=== PATIENT | female | born 1985 | race American Indian/Alaskan Native ===

== ENCOUNTER 2017-10-12 13:48 | Emergency (ER) | payer OTHER ==
--- NOTE | 2017-10-12 15:14 | XRay Report ---
FINAL REPORT EXAM: XR CHEST ROUTINE 2V HISTORY: chest pain TECHNIQUE: Two view chest PA and lateral PRIORS: None. FINDINGS: Cardiac and mediastinal contours are unremarkable. No focal pulmonary infiltrate is identified. No pleural fluid collection seen. Pulmonary vasculature is unremarkable. IMPRESSION: Negative two-view chest
[2017-10-12 15:40] LABS: Hematocrit 32.5 % (30.3-42.9); Mean Corpuscular Hemoglobin 24 pg (28-32); Mean Corpuscular Volume 77 fl (79-97); Red Blood Count 4.22 M/mm3 (3.65-5.03); White Blood Count 8.4 K/mm3 (4.5-11.0)
[2017-10-12 15:41] LABS: Basophils % (Auto) 0.3 % (0.0-1.8); Eosinophils % (Auto) 0.2 % (0.0-4.3); Mean Corpuscular HGB Conc 31 % (30-34); Platelet Count 191 K/mm3 (140-440); Red Cell Distribution Width 20.4 % (13.2-15.2)
[2017-10-12 15:47] LABS: Anion Gap 21 mmol/L; BUN/Creatinine Ratio 12; Blood Urea Nitrogen 7 mg/dL (7-17); Carbon Dioxide 19 mmol/L (22-30); Chloride 99.3 mmol/L (98-107); Glucose 83 mg/dL (65-100); Potassium 4.3 mmol/L (3.6-5.0); Sodium 135 mmol/L (137-145)
[2017-10-12] MEDS ORDERED: ZITHROMAX PO ONE (20:14)
[2017-10-12] MEDS ORDERED: TORADOL IM ONE (20:14)
[2017-10-12] MEDS ORDERED: ULTRAM PO ONE (20:14)
[2017-10-12] MEDS ORDERED: TESSALON PERLES PO ONE (20:14)
[2017-10-12 20:18] VITALS: BP 140/74
--- NOTE | 2017-10-12 20:24 | Emergency Department Report ---
- General Chief Complaint: Chest Pain Stated Complaint: COUGH/SORE THROAT/CHEST PAIN/CHILLS Time Seen by Provider: 10/12/17 19:56 Source: patient Mode of arrival: Ambulatory Limitations: No Limitations - History of Present Illness Initial Comments: 32-year-old female smoker with no significant past medical history presents to the hospital complaining of cough and cold symptoms 4 days. Cough productive of green sputum. Chills without documented fever. Intermittent sternal sharp chest pain rated 8/10 in intensity, worse with cough, palpation, and movement. Patient denies shortness of breath, sick contacts, recent travel, and did not receive a flu shot this year. no calf or leg symptoms reported. Patient also complains of right-sided throat pain with gland swelling. Taking over-the- counter medication without relief - Related Data Previous Rx's Medication Instructions Recorded Last Taken Type Azithromycin [Zithromax Z-ABDOULAYE] 1 dose PO DAILY 5 Days tab 10/12/17 Unknown Rx Benzonatate [Tessalon Perles] 100 mg PO Q8HR PRN #30 capsule 10/12/17 Unknown Rx Ibuprofen [Motrin] 800 mg PO Q8HR PRN #30 tablet 10/12/17 Unknown Rx traMADol [Ultram 50 MG tab] 50 mg PO Q6HR PRN #20 tablet 10/12/17 Unknown Rx Allergies Allergy/AdvReac Type Severity Reaction Status Date / Time No Known Allergies Allergy Verified 10/12/17 14:11 ED Review of Systems ROS: Stated complaint: COUGH/SORE THROAT/CHEST PAIN/CHILLS Other details as noted in HPI Comment: All other systems reviewed and negative Other: Constitutional: As per HPI Eyes: No eye pain visual changes ENT: No ear pain or throat pain Neck: Denies pain Respiratory: As per HPI Cardiovascular: Denies palpitations, syncope GI: Denies abdominal pain, nausea, vomiting, diarrhea : Denies dysuria Musculoskeletal: Denies back pain Skin: Denies rash, lesions, erythema Neurologic: Denies headache, numbness, weakness Psychiatric: Denies suicidal ideation, hallucinations ED Past Medical Hx - Past Medical History Previous Medical History?: No - Surgical History Past Surgical History?: No - Social History Smoking Status: Current Every Day Smoker Substance Use Type: Alcohol - Medications Home Medications: Home Medications Medication Instructions Recorded Confirmed Last Taken Type Azithromycin [Zithromax Z-ABDOULAYE] 1 dose PO DAILY 5 Days tab 10/12/17 Unknown Rx Benzonatate [Tessalon Perles] 100 mg PO Q8HR PRN #30 capsule 10/12/17 Unknown Rx Ibuprofen [Motrin] 800 mg PO Q8HR PRN #30 tablet 10/12/17 Unknown Rx traMADol [Ultram 50 MG tab] 50 mg PO Q6HR PRN #20 tablet 10/12/17 Unknown Rx ED Physical Exam - General Limitations: No Limitations - Other Other exam information: General: No limitations, patient is alert in no acute distress Head exam: Atraumatic, normocephalic Eyes exam: Normal appearance, pupils equal reactive to light, extraocular movements intact ENT: Moist mucous membrane, tonsillar swelling bilaterally greater on the right. Tender cervical lymphadenopathy Neck exam: Normal inspection, full range of motion, no meningismus nontender Respiratory exam: Clear to auscultation bilateral, no wheezes, rales, crackles, reproducible midsternal chest wall tenderness Cardiovascular: Normal rate and rhythm, normal heart sounds Abdomen: Soft, nondistended, and nontender, with normal bowel sounds, no rebound, or guarding Extremity: Full range of motion normal inspection no deformity, no calf tenderness or edema Back: Normal Inspection, full range of motion, no tenderness Neurologic: Alert, oriented x3, cranial nerves intact, no motor or sensory deficit Psychiatric: normal affect, normal mood Skin: Warm, dry, intact ED Course Vital Signs 10/12/17 10/12/17 14:06 20:02 Temperature 99.6 F 98.8 F Pulse Rate 102 H 89 Respiratory 16 19 Rate Blood Pressure 153/91 Blood Pressure 132/62 [Left] O2 Sat by Pulse 97 98 Oximetry - Reevaluation(s) Reevaluation #1: 10/12/17 20:27 Patient given azithromycin by mouth, Toradol IM, Tessalon Perles by mouth, and tramadol by mouth ED Medical Decision Making - Lab Data Result diagrams: 10/12/17 14:49 10/12/17 14:49 Lab Results 10/12/17 10/12/17 10/12/17 Range/Units 14:49 14:49 17:12 WBC 8.4 (4.5-11.0) K/mm3 RBC 4.22 (3.65-5.03) M/mm3 Hgb 10.0 L (10.1-14.3) gm/dl Hct 32.5 (30.3-42.9) % MCV 77 L (79-97) fl MCH 24 L (28-32) pg MCHC 31 (30-34) % RDW 20.4 H (13.2-15.2) % Plt Count 191 (140-440) K/mm3 Lymph % (Auto) 12.0 L (13.4-35.0) % Wirt % (Auto) 5.7 (0.0-7.3) % Eos % (Auto) 0.2 (0.0-4.3) % Baso % (Auto) 0.3 (0.0-1.8) % Lymph # 1.0 L (1.2-5.4) K/mm3 Wirt # 0.5 (0.0-0.8) K/mm3 Eos # 0.0 (0.0-0.4) K/mm3 Baso # 0.0 (0.0-0.1) K/mm3 Seg Neutrophils % 81.8 H (40.0-70.0) % Seg Neutrophils # 6.8 (1.8-7.7) K/mm3 Sodium 135 L (137-145) mmol/L Potassium 4.3 (3.6-5.0) mmol/L Chloride 99.3 (98-107) mmol/L Carbon Dioxide 19 L (22-30) mmol/L Anion Gap 21 mmol/L BUN 7 (7-17) mg/dL Creatinine 0.6 L (0.7-1.2) mg/dL Estimated GFR > 60 ml/min BUN/Creatinine Ratio 12 % Glucose 83 (65-100) mg/dL Calcium 9.0 (8.4-10.2) mg/dL Troponin T < 0.010 < 0.010 (0.00-0.029) ng/mL 10/12/17 Range/Units 19:24 WBC (4.5-11.0) K/mm3 RBC (3.65-5.03) M/mm3 Hgb (10.1-14.3) gm/dl Hct (30.3-42.9) % MCV (79-97) fl MCH (28-32) pg MCHC (30-34) % RDW (13.2-15.2) % Plt Count (140-440) K/mm3 Lymph % (Auto) (13.4-35.0) % Wirt % (Auto) (0.0-7.3) % Eos % (Auto) (0.0-4.3) % Baso % (Auto) (0.0-1.8) % Lymph # (1.2-5.4) K/mm3 Wirt # (0.0-0.8) K/mm3 Eos # (0.0-0.4) K/mm3 Baso # (0.0-0.1) K/mm3 Seg Neutrophils % (40.0-70.0) % Seg Neutrophils # (1.8-7.7) K/mm3 Sodium (137-145) mmol/L Potassium (3.6-5.0) mmol/L Chloride (98-107) mmol/L Carbon Dioxide (22-30) mmol/L Anion Gap mmol/L BUN (7-17) mg/dL Creatinine (0.7-1.2) mg/dL Estimated GFR ml/min BUN/Creatinine Ratio % Glucose (65-100) mg/dL Calcium (8.4-10.2) mg/dL Troponin T < 0.010 (0.00-0.029) ng/mL - Radiology Data Radiology results: report reviewed (chest x-ray: No acute finding) - Medical Decision Making Initial tachycardia resolved prior to treatment. Patient received initial dose of medications in the ED. Symptoms likely viral but patient will be covered with a Z-Abdoulaye for tonsillitis and bronchitis. Outpatient follow-up will be encouraged. Discount prescription drug card will be provided. - Differential Diagnosis pneumonia, bronchitis, pharyngitis, strep throat Critical Care Time: No Critical care attestation.: If time is entered above; I have spent that time in minutes in the direct care of this critically ill patient, excluding procedure time. ED Disposition Clinical Impression: Acute bronchitis, Pharyngitis, Costochondritis Disposition: - TO HOME OR SELFCARE Is pt being admited?: No Does the pt Need Aspirin: No Condition: Stable Instructions: Acute Bronchitis (ED), Costochondritis (ED), Pharyngitis (ED) Additional Instructions: Take the medication as prescribed. Return if symptoms worsen. Use the discount coupon card provided to make your medications more affordable. Follow- up with the clinic or primary care doctor provider. Prescriptions: Azithromycin [Zithromax Z-ABDOULAYE] 1 dose PO DAILY 5 Days tab Benzonatate [Tessalon Perles] 100 mg PO Q8HR PRN #30 capsule PRN Reason: Cough Ibuprofen [Motrin] 800 mg PO Q8HR PRN #30 tablet PRN Reason: Pain traMADol [Ultram 50 MG tab] 50 mg PO Q6HR PRN #20 tablet PRN Reason: Pain Referrals: [facility] [Provider Group] - 3-5 Days (primary care clinic ) YOSEPH AHN MD [Staff Physician] - 3-5 Days (primary care doctor ) Time of Disposition: 20:44
== END 2017-10-12 20:58 | disposition home or self-care (01) ==
LOC: ED 13:48
DX: J20.9 Acute bronchitis, unspecified (principal); M94.0 Chondrocostal junction syndrome [Tietze]; F17.200 Nicotine dependence, unspecified, uncomplicated
CPT/HCPCS: 71020; 93005; 93010; 96372; 99284; J1885; 36415; 80048; 84484; 85025